=== PATIENT | female | born 1985 | race Two or more races ===

== ENCOUNTER 2018-04-23 05:09 | Emergency (ER) | payer OTHER, SELFPAY ==
[2018-04-23] MEDS ORDERED: NA CHLORIDE 0.9% 1,000 ML ONE (05:50)
--- NOTE | 2018-04-23 06:37 | ER ---
Nurse's Notes [facility] Name: Linh Young Age: 33 yrs Sex: Female : 1985 Arrival Date: 04/23/2018 Time: 05:12 Bed 2 Private MD: Diagnosis: Presentation: 04/23 05:05 Presenting complaint: EMS states: EMS called to by PD, Hotel staff reported and friends ea pt having seizure like activity. Pt friends reported they had been drinking denied drug use. Pt Ox2 per EMS. Transition of care: patient was not received from another setting of care. Transition of care: patient was not received from another setting of care. Onset of symptoms was April 23, 2018. Risk Assessment: Do you want to hurt yourself or someone else? Patient reports no desire to harm self or others. Initial Sepsis Screen: Does the patient meet any 2 criteria? HR > 90 bpm. Does the patient have a suspected source of infection? No. Patient's initial sepsis screen is negative. Care prior to arrival: None. 05:05 Method Of Arrival: EMS: [facility] ea 05:05 Acuity: MAIA 3 ea Triage Assessment: 05:05 General: Appears uncomfortable, Behavior is anxious, crying. General: Smells of ea alcohol. Pain: Denies pain. Neuro: Level of Consciousness is obeys commands, Oriented to person, place, situation. Neuro: Speech is slurred. Cardiovascular: Patient's skin is warm and dry. Respiratory: Airway is patent Respiratory effort is even, unlabored, Respiratory pattern is regular, symmetrical. Derm: Skin is normal, Skin temperature is cool warm blanket applied. 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 - Social history:: Patient/guardian denies using street drugs, Smoking status: Patient/guardian denies using tobacco. - Ebola Screening: : Unable to complete screening because. - Family history:: not pertinent. - Hospitalizations: : No recent hospitalization is reported. Screenin:20 Abuse screen: Denies threats or abuse. Nutritional screening: No deficits noted. ea Tuberculosis screening: No symptoms or risk factors identified. Fall Risk None identified. Assessment: 06:32 General: pt constantly yelling and wanting to go home. pt had a friend at bedside to ak1 take her home. pt signed out AMA. form was signed and pt friend too her home. pt left ambulatory with her friend to "take her daughter to day care". Vital Signs: 05:18 BP 144 / 86; Pulse 144; Resp 19; Temp 98.3(O); Pulse Ox 100% on R/A; ea 06:34 BP 135 / 88; Pulse 118; Resp 18; Temp 98.3; Pulse Ox 100% on R/A; ak1 ED Course: 05:05 Arm band placed on right wrist. Patient placed in an exam room, on a stretcher, on ea copyright expert, on pulse oximetry. 05:05 Placed in gown. Bed in low position. Call light in reach. Side rails up X2. ea 05:12 Patient arrived in ED. rn 05:12 Edis Bautista MD is Attending Physician. rn 05:15 Christelle Barton RN is Primary Nurse. ea 05:18 Triage completed. ea 05:39 Inserted saline lock: 20 gauge in left antecubital area, using aseptic technique. Blood ea collected. 06:35 No provider procedures requiring assistance completed. IV discontinued, intact, ak1 bleeding controlled, No redness/swelling at site. Pressure dressing applied. Administered Medications: 05:43 Drug: NS 0.9% 1000 ml Route: IV; Rate: 1000 ml; Site: right antecubital; ea Outcome: 06:35 AMA AMA form signed ak1 06:35 Condition: unchanged 06:36 Patient left the ED. ak1 Signatures: Edis Bautista MD MD rn Krenek, Amber, RN RN ak1 Antunez, Elena, RN RN ea
--- NOTE | 2018-04-23 06:38 | EDPHYS ---
Physician Documentation [facility] Name: Linh Young Age: 33 yrs Sex: Female : 1985 Arrival Date: 04/23/2018 Time: 05:12 Bed 2 Private MD: ED Physician Edis Bautista HPI: 04/23 05:26 This 33 yrs old Other Female presents to ER via EMS with complaints of AMS. rn 05:26 Hotel staff called 911 because patient was acting strange and shaking while walking and rn talking, when EMS arrived was upstairs in her room and in bed sleeping, other people with her all intoxicated, patient reports was at bar last night drinking a lot, denies drug use. . Onset: The symptoms/episode began/occurred today. Severity of symptoms: At their worst the symptoms were moderate in the emergency department the symptoms are unchanged. It is unknown whether or not the patient has had similar symptoms in the past. MBA INTERN: 05:18 Unable to obtain pt states "I am not sure" ea Historical: - Allergies: 05:21 No Known Allergies; ea - Home Meds: 05:21 None [Active]; ea - PMHx: 05:21 None; ea - PSHx: 05:21 None; ea - Immunization history:: unable to obtain states " I don't know". - Social history:: Patient/guardian denies using street drugs, Smoking status: Patient/guardian denies using tobacco. - Ebola Screening: : Unable to complete screening because. - Family history:: not pertinent. - Hospitalizations: : No recent hospitalization is reported. ROS: 05:26 Constitutional: Negative for fever, chills, and weight loss, Eyes: Negative for injury, rn pain, redness, and discharge, Neck: Negative for injury, pain, and swelling, Cardiovascular: Negative for chest pain, palpitations, and edema, Respiratory: Negative for shortness of breath, cough, wheezing, and pleuritic chest pain, Abdomen/GI: Negative for abdominal pain, nausea, vomiting, diarrhea, and constipation, MS/Extremity: Negative for injury and deformity, Skin: Negative for injury, rash, and discoloration, Neuro: Negative for headache, weakness, numbness, tingling, and seizure. Exam: 05:26 Constitutional: This is a well developed, well nourished patient who is awake, alert, rn tremulous Head/Face: Normocephalic, atraumatic. Eyes: Pupils equal round and reactive to light, extra-ocular motions intact. Lids and lashes normal. Conjunctiva and sclera are non-icteric and not injected. Cornea within normal limits. Periorbital areas with no swelling, redness, or edema. ENT: dry MM Neck: Trachea midline, no thyromegaly or masses palpated, and no cervical lymphadenopathy. Supple, full range of motion without nuchal rigidity, or vertebral point tenderness. No Meningismus. Cardiovascular: tachycardic, regular, no murmur Respiratory: Lungs have equal breath sounds bilaterally, clear to auscultation. No increased work of breathing, no retractions or nasal flaring. Abdomen/GI: soft, non-tender Skin: Warm, dry MS/ Extremity: Pulses equal, no cyanosis. Neurovascular intact. Full, normal range of motion. Equal circumference. Neuro: Awake and alert, GCS 15, oriented to person, place, time, and situation. Cranial nerves II-XII grossly intact. Motor strength 5/5 in all extremities. Sensory grossly intact. Cerebellar exam normal. Normal gait. Slurred speech. Vital Signs: 05:18 BP 144 / 86; Pulse 144; Resp 19; Temp 98.3(O); Pulse Ox 100% on R/A; ea 06:34 BP 135 / 88; Pulse 118; Resp 18; Temp 98.3; Pulse Ox 100% on R/A; ak1 MDM: 05:12 Patient medically screened. rn 06:32 Differential Diagnosis drug or alcohol intoxication, dehydration. Data reviewed: vital rn signs, nurses notes, lab test result(s). Refusal of service: The patient/guardian displays adequate decision making capability and despite a detailed discussion of alternatives, benefits, risks, and consequences refuses: all lab tests, Medications. ED course: Pt refuses further care, called her friend to pick her up, signs out against advice, there was no reasoning with her, friend who picked her up is sober and is driving her home. Risks of leaving explained, patient left in care of friend.. 04/23 05:13 Order name: Basic Metabolic Panel rn 04/23 05:13 Order name: ETOH Level rn 04/23 05:13 Order name: Acetaminophen rn 04/23 05:13 Order name: Hepatic Function rn 04/23 05:13 Order name: IV Start; Complete Time: 05:39 rn 04/23 05:13 Order name: Urine Test (obtain specimen) rn 04/23 05:13 Order name: Urine Dipstick-Ancillary (obtain specimen) rn 04/23 05:13 Order name: Salicylate rn 04/23 05:13 Order name: EKG - Nurse/Tech rn 04/23 05:13 Order name: Labs collected and sent rn Administered Medications: 05:43 Drug: NS 0.9% 1000 ml Route: IV; Rate: 1000 ml; Site: right antecubital; ea Disposition: 04/23/18 06:36 Patient has left against medical advice. - Patients states they are going to Home. - Condition is Undetermined. Signatures: Dispatcher [employer] Edis Baker MD MD rn Krenek, Amber RN RN ak1 Christelle Barton RN RN ea
[2018-04-23 12:21] LABS: ALT/SGPT 25 U/L (12-78); AST/SGOT 26 U/L (15-37); Albumin 4.1 g/dL (3.4-5.0); Alkaline Phosphatase 44 U/L (45-117); BUN Blood Urea Nitrogen 14 mg/dL (7-18); Bicarbonate 24 mmol/L (21-32); Bilirubin Direct < 0.1 mg/dL (0-0.2); Bilirubin Total 0.2 mg/dL (0.2-1.0); Glucose Level 96 mg/dL (74-106); Potassium 3.9 mmol/L (3.5-5.1); Protein, Total 7.6 g/dL (6.4-8.2); Sodium Level 139 mmol/L (136-145)
== END 2018-04-23 06:36 | disposition left against medical advice (07) ==
LOC: ER 05:09
DX: R41.82 Altered mental status, unspecified (principal)
CPT/HCPCS: 36415; 80048; 80076; 80320; 80329; 99284; J7030

== ENCOUNTER 2019-04-19 21:38 | Emergency (ER) | payer SELFPAY ==
--- OUTSIDE RECORDS SUMMARY | 2019-04-19 21:40 | XMS REPORT ---
:1985 [facility] Address [address] [place] [address] [address] [place] [address] Care Team Providers Name Role Phone Unavailable Unavailable Unavailable Problems This patient has no known problems. Allergies, Adverse Reactions, Alerts This patient has no known allergies or adverse reactions. Medications This patient has no known medications.
--- NOTE | 2019-04-19 23:54 | ER ---
Nurse's Notes [facility] Name: Linh Young Age: 34 yrs Sex: Female : 1985 Arrival Date: 04/19/2019 Time: 21:40 Bed 25 Private MD: Diagnosis: Bronchitis, not specified as acute or chronic;Fever, unspecified;Tobacco abuse counseling;Tobacco use;Streptococcal pharyngitis Presentation: 04/19 21:42 Presenting complaint: Patient states: "3 days ago I started having pain in my throat, aj1 coughing, and now its getting hard to breathe" Patient reports fever at home this morning of 101.2. Reports cough, congestion. Transition of care: patient was not received from another setting of care. Onset of symptoms was March 2019. Risk Assessment: Do you want to hurt yourself or someone else? Patient reports no desire to harm self or others. Initial Sepsis Screen: Does the patient meet any 2 criteria? No. Patient's initial sepsis screen is negative. Does the patient have a suspected source of infection? Yes: Productive cough/pneumonia. Care prior to arrival: None. 21:42 Method Of Arrival: Ambulatory aj1 21:42 Acuity: MAIA 3 aj1 Triage Assessment: 21:43 General: Appears in no apparent distress. comfortable, Behavior is calm, cooperative, aj1 appropriate for age. Pain: Complains of pain in generalized body aches Pain currently is 7 out of 10 on a pain scale. Neuro: Level of Consciousness is awake, alert, obeys commands, Oriented to person, place, time, situation. Cardiovascular: Patient's skin is warm and dry. Respiratory: Reports shortness of breath on exertion cough that is hacking, persistent Airway is patent Respiratory effort is even, unlabored, Respiratory pattern is regular, symmetrical, Onset: The symptoms/episode began/occurred 3 days ago, the patient has mild shortness of breath. 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 - Coronavirus screen:: The patient has NOT traveled to [place] in the past 14 days. - Social history:: Smoking status: Patient reports the use of cigarette tobacco products, smokes one-half pack cigarettes per day. - Ebola Screening: : Patient denies travel to an Ebola-affected area in the 21 days before illness onset. Screenin:20 Abuse screen: Denies threats or abuse. Denies injuries from another. Nutritional ls4 screening: No deficits noted. Tuberculosis screening: No symptoms or risk factors identified. Fall Risk None identified. Assessment: 22:20 Cardiovascular: Denies chest pain, Rhythm is regular. ls4 22:20 General: Appears in no apparent distress. uncomfortable, Behavior is calm, cooperative. ls4 Neuro: No deficits noted. Respiratory: Reports cough that is non-productive, dry, hacking, persistent Respiratory effort is even, unlabored, Respiratory pattern is regular, Breath sounds with wheezes bilaterally. the patient has mild shortness of breath. 04/20 00:00 Reassessment: No changes from previously documented assessment. Patient and/or family ls4 updated on plan of care and expected duration. Pain level reassessed. Patient is alert, oriented x 3, equal unlabored respirations, skin warm/dry/pink. 01:29 Reassessment: No changes from previously documented assessment. Patient and/or family ls4 updated on plan of care and expected duration. Pain level reassessed. Patient is alert, oriented x 3, equal unlabored respirations, skin warm/dry/pink. PT BREATHING TREATMENT IN PROGRESS. Vital Signs: 04/19 21:43 BP 142 / 79; Pulse 85; Resp 18; Temp 97.1; Pulse Ox 100% on R/A; Weight 72.57 kg (R); aj1 Height 5 ft. 5 in. (165.10 cm) (R); Pain 7/10; 22:45 BP 121 / 73; Pulse 76; Resp 16; Temp 98.9(O); Pulse Ox 100% ; lt1 04/20 01:15 BP 138 / 84; Pulse 78; Resp 16; Temp 97.4; Pulse Ox 99% on R/A; Pain 3/10; ls4 04/19 21:43 Body Mass Index 26.63 (72.57 kg, 165.10 cm) aj1 ED Course: 04/19 21:40 Patient arrived in ED. jg7 21:43 Triage completed. aj1 21:43 Arm band placed on Patient placed in waiting room, Patient notified of wait time. aj1 22:04 Strep Sent. aj1 22:04 Flu Sent. aj1 22:20 Bed in low position. Call light in reach. Side rails up X 1. ls4 22:20 No provider procedures requiring assistance completed. Patient did not have IV access ls4 during this emergency room visit. 22:25 Ray Miller MD is Attending Physician. humza 22:44 Margie Terry, RN is Primary Nurse. ls4 04/20 00:49 Chest Pa And Lat (2 Views) XRAY Sent. ls4 Administered Medications: 00:34 Drug: predniSONE 40 mg Route: PO; ls4 01:00 Follow up: Response: No adverse reaction ls4 00:35 Drug: Rocephin (cefTRIAXone) 1 grams Route: IM; Site: right deltoid; ls4 01:00 Follow up: Response: No adverse reaction ls4 00:35 Drug: Zithromax 500 mg Route: PO; ls4 01:00 Follow up: Response: No adverse reaction ls4 00:36 Drug: Xopenex 2.5 mg Route: Inhalation; ls4 00:36 Drug: AtroVENT Aerosol 0.5 mg Route: Inhalation; ls4 01:00 Follow up: Response: No adverse reaction ls4 Outcome: 04/19 23:54 [facility] 04/20 01:15 Discharged to home ambulatory, with family. ls4 01:15 Condition: good ls4 01:15 Discharge instructions given to patient, family, Instructed on discharge instructions, follow up and referral plans. safety practices, Demonstrated understanding of instructions, follow-up care, medications, Prescriptions given X 4. 01:32 Patient left the ED. ls4 Signatures: Zehra Vasques, RN RN Ray Barillas MD MD cha Stewart, Lisa, LAVON RN ls4 [place] 1 Jamia Payne jg7
--- NOTE | 2019-04-19 23:55 | EDPHYS ---
Physician Documentation [facility] Name: Linh Young Age: 34 yrs Sex: Female : 1985 Arrival Date: 04/19/2019 Time: 21:40 Bed 25 Private MD: ED Physician Ray Miller HPI: 04/19 23:50 This 34 yrs old Black Female presents to ER via Ambulatory with complaints of Breathing humza Difficulty, Cold Symptoms. 23:50 The patient has shortness of breath with light activity. Onset: The symptoms/episode humza began/occurred 3 day(s) ago. Duration: The symptoms are continuous, and are steadily getting worse. The patient's shortness of breath is aggravated by coughing, supine position, is alleviated by rest, sitting up, application of supplemental oxygen. Associated signs and symptoms: Pertinent positives: non-productive cough, fever. Severity of symptoms: At their worst the symptoms were mild moderate in the emergency department the symptoms are unchanged. The patient has experienced similar episodes in the past, a few times. 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 - Coronavirus screen:: The patient has NOT traveled to [place] in the past 14 days. - Social history:: Smoking status: Patient reports the use of cigarette tobacco products, smokes one-half pack cigarettes per day. - Ebola Screening: : Patient denies travel to an Ebola-affected area in the 21 days before illness onset. ROS: 23:51 Constitutional: Negative for fever, chills, and weight loss, Eyes: Negative for injury, humza pain, redness, and discharge, Neck: Negative for injury, pain, and swelling, Cardiovascular: Negative for chest pain, palpitations, and edema, Abdomen/GI: Negative for abdominal pain, nausea, vomiting, diarrhea, and constipation, Back: Negative for injury and pain, : Negative for injury, bleeding, discharge, and swelling, MS/Extremity: Negative for injury and deformity, Skin: Negative for injury, rash, and discoloration, Neuro: Negative for headache, weakness, numbness, tingling, and seizure, Psych: Negative for depression, anxiety, suicide ideation, homicidal ideation, and hallucinations, Allergy/Immunology: Negative for hives, rash, and allergies, Endocrine: Negative for neck swelling, polydipsia, polyuria, polyphagia, and marked weight changes, Hematologic/Lymphatic: Negative for swollen nodes, abnormal bleeding, and unusual bruising. 23:51 ENT: Positive for sore throat. Exam: 23:51 Constitutional: This is a well developed, well nourished patient who is awake, alert, humza and in no acute distress. Head/Face: Normocephalic, atraumatic. Eyes: Pupils equal round and reactive to light, extra-ocular motions intact. Lids and lashes normal. Conjunctiva and sclera are non-icteric and not injected. Cornea within normal limits. Periorbital areas with no swelling, redness, or edema. Neck: Trachea midline, no thyromegaly or masses palpated, and no cervical lymphadenopathy. Supple, full range of motion without nuchal rigidity, or vertebral point tenderness. No Meningismus. Chest/axilla: Normal chest wall appearance and motion. Nontender with no deformity. No lesions are appreciated. Cardiovascular: Regular rate and rhythm with a normal S1 and S2. No gallops, murmurs, or rubs. Normal PMI, no JVD. No pulse deficits. Abdomen/GI: Soft, non-tender, with normal bowel sounds. No distension or tympany. No guarding or rebound. No evidence of tenderness throughout. Back: No spinal tenderness. No costovertebral tenderness. Full range of motion. Skin: Warm, dry with normal turgor. Normal color with no rashes, no lesions, and no evidence of cellulitis. MS/ Extremity: Pulses equal, no cyanosis. Neurovascular intact. Full, normal range of motion. Neuro: Awake and alert, GCS 15, oriented to person, place, time, and situation. Cranial nerves II-XII grossly intact. Motor strength 5/5 in all extremities. Sensory grossly intact. Cerebellar exam normal. Normal gait. 23:51 ENT: 23:51 ENT: Posterior pharynx: Tonsils: with erythema, Uvula: normal, midline, swelling, that is mild, erythema, that is mild, exudate, is not appreciated, peritonsillar mass, is not appreciated. Vital Signs: 21:43 BP 142 / 79; Pulse 85; Resp 18; Temp 97.1; Pulse Ox 100% on R/A; Weight 72.57 kg (R); aj1 Height 5 ft. 5 in. (165.10 cm) (R); Pain 7/10; 22:45 BP 121 / 73; Pulse 76; Resp 16; Temp 98.9(O); Pulse Ox 100% ; lt1 04/20 01:15 BP 138 / 84; Pulse 78; Resp 16; Temp 97.4; Pulse Ox 99% on R/A; Pain 3/10; ls4 04/19 21:43 Body Mass Index 26.63 (72.57 kg, 165.10 cm) aj1 MDM: 04/19 22:25 Patient medically screened. [place] 23:53 Data reviewed: vital signs, nurses notes, lab test result(s), radiologic studies, plain humza films. 04/19 21:45 Order name: Flu [facility] 04/19 21:45 Order name: Strep [facility] 04/19 21:45 Order name: Chest Pa And Lat (2 Views) XRAY 04/19 22:41 Order name: Influenza Screen (A ; Complete Time: 23:47 EDMS 04/19 22:41 Order name: Group A Streptococcus Rapid Sc; Complete Time: 23:47 EDMS Administered Medications: 04/20 00:34 Drug: predniSONE 40 mg Route: PO; ls4 01:00 Follow up: Response: No adverse reaction ls4 00:35 Drug: Rocephin (cefTRIAXone) 1 grams Route: IM; Site: right deltoid; ls4 01:00 Follow up: Response: No adverse reaction ls4 00:35 Drug: Zithromax 500 mg Route: PO; ls4 01:00 Follow up: Response: No adverse reaction ls4 00:36 Drug: Xopenex 2.5 mg Route: Inhalation; ls4 00:36 Drug: AtroVENT Aerosol 0.5 mg Route: Inhalation; ls4 01:00 Follow up: Response: No adverse reaction 4 Disposition: 04/19/19 23:54 Discharged to Home. Impression: Bronchitis, not specified as acute or chronic, Fever, unspecified, Tobacco abuse counseling, Tobacco use, Streptococcal pharyngitis. - Condition is Stable. - Discharge Instructions: Acute Bronchitis, Adult, Fever, Adult, How to Use an Inhaler, Steps to Quit Smoking, Smoking Hazards, Upper Respiratory Infection, Adult, Upper Respiratory Infection, Adult, [id number], Steps to Quit Smoking, [id number]. - Prescriptions for Medrol (Espinoza) 4 mg Oral Tablets, Dose Pack - take 1 tablet by ORAL route as directed - follow package instructions; 1 packet. Albuterol Sulfate 90 mcg/actuation - inhale 1-2 puff by INHALATION route every 4-6 hours; 1 Inhaler. Zithromax 500 mg Oral Tablet - take 1 tablet by ORAL route once daily for 4 days; 4 tablet. Bromfed DM 2- 30-10 mg/5 mL Oral syrup - take 10 milliliter by ORAL route every 4 hours; 150 milliliter. - Medication Reconciliation Form, Thank You Letter, Antibiotic Education, Prescription Opioid Use form. - Follow up: Private Physician; When: 2 - 3 days; Reason: Recheck today's complaints, Continuance of care, Re-evaluation by your physician. - Problem is new. - Symptoms have improved. Signatures: Dispatcher [employer] EDZehra Dubois, LAVON RN aj1 Ray Miller MD MD cha Stewart, Lisa, RN RN ls4 Corrections: (The following items were deleted from the chart) 00:33 04/19 23:54 04/19/2019 23:54 Discharged to Home. Impression: Bronchitis, not specified humza as acute or chronic; Fever, unspecified; Tobacco abuse counseling; Tobacco use. Condition is Stable. Forms are Medication Reconciliation Form, Thank You Letter, Antibiotic Education, Prescription Opioid Use. Follow up: Private Physician; When: 2 - 3 days; Reason: Recheck today's complaints, Continuance of care, Re-evaluation by your physician. Problem is new. Symptoms have improved. [place] 04/20 01:32 00:33 04/19/2019 23:54 Discharged to Home. Impression: Bronchitis, not specified as ls4 acute or chronic; Fever, unspecified; Tobacco abuse counseling; Tobacco use; Streptococcal pharyngitis. Condition is Stable. Discharge Instructions: Acute Bronchitis, Adult, Fever, Adult, How to Use an Inhaler, Steps to Quit Smoking, Smoking Hazards, Upper Respiratory Infection, Adult, Upper Respiratory Infection, Adult, [id number], Steps to Quit Smoking, [id number]. Prescriptions for Medrol (Espinoza) 4 mg Oral Tablets, Dose Pack - take 1 tablet by ORAL route as directed - follow package instructions; 1 packet, Albuterol Sulfate 90 mcg/actuation - inhale 1-2 puff by INHALATION route every 4-6 hours; 1 Inhaler, Zithromax 500 mg Oral Tablet - take 1 tablet by ORAL route once daily for 4 days; 4 tablet, Bromfed DM 2-30-10 mg/5 mL Oral syrup - take 10 milliliter by ORAL route every 4 hours; 150 milliliter. and Forms are Medication Reconciliation Form, Thank You Letter, Antibiotic Education, Prescription Opioid Use. Follow up: Private Physician; When: 2 - 3 days; Reason: Recheck today's complaints, Continuance of care, Re-evaluation by your physician. Problem is new. Symptoms have improved. humza
[2019-04-20] MEDS ORDERED: IPRATROPIUM BROM 0.5MG/2.5ML ONE (00:34)
[2019-04-20] MEDS ORDERED: AZITHROMYCIN 250 MG TAB ONE (00:34)
[2019-04-20] MEDS ORDERED: LEVALBUTEROL 1.25 MG/3 ML NEB ONE (00:34)
[2019-04-20] MEDS ORDERED: CEFTRIAXONE 1000 MG/VIAL ONE (00:35)
[2019-04-20] MEDS ORDERED: LIDOCAINE 1% MPF 2 ML AMPULE ONE (00:35)
[2019-04-20] MEDS ORDERED: predniSONE 20 MG TAB ONE (00:35)
[2019-04-20 03:59] VITALS: BP 138/84; TEMP 97.4; O2SAT 99
--- NOTE | 2019-04-20 08:35 | RAD REPORT ---
EXAM DESCRIPTION: RAD - Chest Single View - 04/19/2019 10:38 pm CLINICAL HISTORY: SOB COMPARISON: CHEST PA AND LAT 2 VIEW dated 10/26/2012 TECHNIQUE: AP portable chest image was obtained 04/19/2019 10:38 pm . FINDINGS: Lungs are clear. Heart and vasculature are normal. No measurable pleural effusion and no p neumothorax. No acute bony abnormality seen. No acute aortic findings suspected. No significant wise e from comparison. IMPRESSION: No acute cardiopulmonary process.
== END 2019-04-20 01:32 | disposition home or self-care (01) ==
LOC: ER 21:38
DX: J40 Bronchitis, not specified as acute or chronic (principal); J02.0 Streptococcal pharyngitis; Z72.0 Tobacco use; Z71.6 Tobacco abuse counseling
CPT/HCPCS: 71045; 87081; 87804; 96372; 99284; J2001; J7512

== ENCOUNTER 2022-03-24 13:12 | Emergency (ER) | payer SELFPAY ==
--- OUTSIDE RECORDS SUMMARY | 2022-03-24 13:14 | XMS REPORT | Continuity of Care Document ---
:1985 Author Organization [facility] t Address [facility] [place] [address] Care Team Providers Name Role Phone Misti Haji Primary Care Physician [phone] MISTI OSEGUERA Attending Clinician Unavailable Misti Haji Attending Clinician [phone] Doctor Unassigned, [place] Attending Clinician Unavailable Diane Coburn MD Attending Clinician [phone] SHIVA POLLACK Attending Clinician Unavailable BUBBA RODRIGUEZ Attending Clinician Unavailable Bubba Smith Attending Clinician Aj [facility] Attending Clinician Unavailable [facility] Attending Clinician Unavailable Lauryn Hinojosa Attending Clinician LAURYN AREVALO Attending Clinician Unavailable Jennifer Arias RN Attending Clinician Unavailable Payers Payer Name Policy Type Policy Number Effective Date Expiration Date Natalia luke [id number]-[id number] 2020 00:00:00 Problems Condition Condition Condition Status Onset Resolution Last Treating Co mments Source Name Details Category Date Date Treatment Clinician Date Other Other Disease Active Univers general general 8-23 [place] counseling [place] advice 00 Fl dical for for Branch contracept contracept mari mari management management Breakthrou Breakthrou Disease Active U nivers gh gh 8-23 ity of bleeding bleeding 00:00: [place] on on 00 Medical Nexplanon Nexplanon Bran ch Elevated Elevated Disease Active Unive rs blood blood 4-12 ity of pressure pressure 00:00: [place] reading reading 00 Medical without without Branch diagnosis diagnosis of of hypertensi hypertensi on on Tobacco Tobacco Disease Active Univers use use 9-23 ity of disorder disorder 00:00: [place] 00 Medical Branch Nexplanon Nexplanon Disease Active Uni vers removal removal 7 ity of 00:00: [place] 00 Medical Branch Screening Screening Disease Active Uni vers examinatio examinatio 7 it y of n for STD n for STD 00:00: [place] s (sexually (sexually 00 [facility] kai transmitte transmitte Br anch d disease) d disease) Need for Need for Disease Active Unive rs Tdap Tdap 08-29 [place]y of vaccinatio vaccin[place] Medical [place] BMI BMI Disease Active Univers 27.0-27.9, 27.0-27.9, 7-03 it y of adult adult 00:00: [place] 00 Medical Branch ASCUS with ASCUS with Disease Active U nivers positive positive 8-10 ity of high risk high risk 00:00: [place] s HPV HPV 00 Medical cervical cervical Branch Dysmenorrh Dysmenorrh Disease Active U nivers ea ea 6-30 ity of 00:00: [place] 00 Medical Branch Chronic Chronic Disease Active Univers hypertensi hypertensi 6-23 it y of on on 00:00: [place] 00 Medical Branch Depression Depression Disease Active U nivers 6-23 ity of 00:00: [place] 00 Medical Branch Allergies, Adverse Reactions, Alerts This patient has no known allergies or adverse reactions. Social History Social Habit Start Date Stop Date Quantity Comments Source History of tobacco 2003-11-20 Cigarette Smoker University of use 00:00:00 [place] [facility] History SDOH University o f Alcohol Std Drinks [place] [facility] History SDOH University o f Alcohol Binge [place] Medic al Branch History SDOH University o f Alcohol Frequency [facility] edical Branch Exposure to 2021-07-30 2021-08-09 Not sure [facility] SARS-CoV-2 (event) 00:00:00 15:19:00 [facility] Alcohol intake 2021-08-09 2021-08-09 Current drinker Unive rsity of 00:00:00 00:00:00 of alcohol [facility] (finding) [place] Alcohol Comment 2020-06-08 2020-06-08 on occassion Univers ity of 00:00:00 00:00:00 [facility] Tobacco Comment 2016-08-29 2016-08-29 5 cigarettes per Uni versity of 00:00:00 00:00:00 day. [facility] Cigarettes smoked 2016-08-29 2016-08-29 Univers ity of current (pack per 00:00:00 00:00:00 [facility] ) - Reported [place] Cigarette 2016-08-29 2016-08-29 University of pack-years 00:00:00 00:00:00 [facility] Tobacco use and 2016-08-29 2016-08-29 Never used Universit y of exposure 00:00:00 00:00:00 [facility] Sex Ass[birth year] Universit y of 00:00:00 00:00:00 [facility] Smoking Status Start Date Stop Date Source Current every day smoker 2016-08-29 00:00:00 Uni versity of [facility] Medications Ordered Filled Start Stop Current Ordering Indication Dosage Frequency Signature Comments Components Source Medication Medication Date Date Medication? Clinician (SIG) Name Name etonogestre 2021- No [id number] 68mg Univers L 08-09 ity of (NEXPLANON) 22:30: 21:26 [place] implant 68 00 :00 Medical mg [place] etonogestre 2021- No [id number] 68mg 68 mg, Univers L 08-09 Subdermal, ity of (NEXPLANON) 22:30: 21:26 ONCE NOW, [place] implant 68 00 :00 1 dose, On Med ical mg Mon [place] 08/09/21 at 1730, Routine
Use approved by: [employer] ARCHITECT etonogestre 2021- No [id number] 68mg Univers L 08-09- ity of (NEXPLANON) 21:45: 21:26 [place] implant 68 00 :06 Medical mg Branch acyclovir Yes [id number] 400mg Take 1 Univers 400 mg 4-28 tablet by ity of tablet 00:00: mouth 2 (two) Medical times Branch daily. lidocaine 2 Yes [id number] 30mL Apply 15 Univers % mucosal 4-28 Inches to ity o f jelly 00:00: area(s) as 00 needed for Medical Pain Branch (scale 4-6). Apply small amount to area as needed for discomfort Immunizations Ordered Filled Immunization Date Status Comments Sourc e Immunization Name Name Influenza Virus 2018-01-12 Completed Universit y of Vaccine Quad IM 3+ 00:00:00 [facility] YRS Branch TDAP 2016-08-29 Completed [facility] 00:00:00 [facility] Vital Signs Vital Name Observation Time Observation Value Comments Source Systolic blood 2021-08-09 20:20:00 121 mm[Hg] [facility] pressure [facility] Diastolic blood 2021-08-09 20:20:00 81 mm[Hg] [facility] Heart rate 2021-08-09 20:20:00 92 /min [facility] Body temperature 2021-08-09 20:19:00 35.94 Crys [facility] Respiratory rate 2021-08-09 20:19:00 18 /min [facility] Body height 2021-08-09 20:19:[address] [facility] Body weight 2021-08-09 20:19:[address] [facility] BMI 2021-08-09 20:19:00 29.45 kg/m2 [facility] Procedures Procedure Date / Time Performed Performing Clinician Kimo e POCT TEST 2021-08-09 20:21:00 [facility] Start End Encounter Admission Attending Care Care Encounter Source Date/Time Date/Time Type Type Clinicians Facility Department ID 2021-08-09 2021-08-09 Outpatient R ANA ROSA [facility] [id number] Univers 15:15:00 16:01:23 MISTI maldonado o f [facility] 2021-08-09 2021-08-[address] [facility] [id number] Univers 15:15:00 16:01:23 Visit Misti Shepherd [employer] ARCHITECT [id number] ity of REGIONAL [id number] [place] as MATERNAL [phone] [facility] & CHILD [address] [place] [address] 2021-08-09 2021-08-09 Outpatient R ANA ROSA [facility] [id number] Univers 15:15:00 15:15:00 MISTI hammondy o f [facility] 2021-08-09 2021-08-09 Orders Doctor DONNA [id number] Univers 00:00:00 00:00:00 Only Unassigned, TANISHA [id number] ity of [place] [facility] 4.2.7.2.686 [place] as [phone] [place] [address] Branch 2021-08-02 2021-08-02 Patient Irish ELLSWORTH [id number] Univers 00:00:00 00:00:00 Secure Msg , Diane PEDIATRIC [id number] ity of [place]7.2.686 [place] [phone] [facility] PRIMARY [address] [place] [address] 2021-06-22 2021-06-22 [facility] [id number] Univers 00:00:00 00:00:00 Misti Shepherd [employer] ARCHITECT [id number] ity of REGIONAL [id number] [place] as MATERNAL [phone] [facility] [address] [place] [address] 2021-06-21 2021-06-21 [facility]phone [facility] 1.2.840.114 [id number] Univers 00:00:00 00:00:00 Misti Shepherd [employer]TALK ARCHITECT 350.1.13.10 ity of REGIONAL [id number] [place] as MATERNAL [phone] [facility] & CHILD [address] [place] [address] 2021-06-21 2021-06-21 [facility]phone [facility] [id number] Univers 00:00:00 00:00:00 Misti C [employer]IZTALK ARCHITECT 350.1.13.10 ity of [facility] 42.7.2.686 [place] as MATERNAL [id number] [facility] & [address] 2021-06-17 2021-06-[address] [facility] [id number] Univers 15:15:00 16:39:53 Visit Misti Shepherd [employer] ARCHITECT 350.1.13.10 ity of [facility] 4.2.7.2.686 [place] as MATERNAL [phone] [facility] & [address] 2021-06-17 2021-06-17 Outpatient R ANA ROSA [facility] [id number] Univers 15:15:00 16:39:53 MISTITASHA maldonado [facility] 2021-06-17 2021-06-17 Outpatient R ANA ROSA [facility] [id number] Univers 15:15:00 16:39:53 MISTITASHA maldonado o [facility] [place] 2021-06-17 2021-06-17 Outpatient R ANA ROSA [facility] [id number] Univers 15:15:00 15:15:00 [facility] 2021-06-17 2021-06-17 Orders Doctor THOMPSON 1.2.840.114 [id number] Univers 00:00:00 00:00:00 Only Unassigned, TANISHA 350.1.13.10 ity of [place] [address]686 [place] as [phone] [address] 2021-06-10 2021-06-10 Outpatient R RANJEET [facility] [id number] Univers 13:00:00 13:00:00 SHIVA maldonado [facility] 2021-05-27 2021-05-27 Outpatient R MICHAEL [facility] [id number] Univers 14:30:00 15:08:09 BUBBA alen [facility] 2021-05-27 2021-05-[address] [facility] [id number] Univers 14:30:00 15:08:09 Visit Bubba R [employer] ARCHITECT 350.1.13.10 ity of REGIONAL 4.2.7.2.686 [place] as MATERNAL [id number] [facility] & [address] 2020-12-08 2020-12-[address] [facility] [id number] Univers 00:00:00 00:00:00 Misti C BIZTALK ARCHITECT 350.1.13.10 ity of REGIONAL 4.2.7.2.686 [place] MATERNAL [phone] [facility] [address] [place] [address] 2020-11-30 2020-11-30 Outpatient R ANA ROSA, [facility] [id number] Univers 14:15:00 14:15:00 MISTI maldonado o [facility] [place] 2020-11-30 2020-11-[address] [facility] [id number] Univers 00:00:00 00:00:00 Misti C [employer]IZTALK ARCHITECT 350.1.13.10 ity of REGIONAL 4.2.7.2.686 [place] MATERNAL [id number] [facility] & [address] 2020-10-19 2020-10-[address] [facility] [id number] Univers 14:14:48 15:30:25 Visit Misti C [employer]IZTALK ARCHITECT 350.1.13.10 ity of REGIONAL 4.2.7.2.686 [place] MATERNAL [id number] [facility] & CHILD [address] [place] [address] 2020-10-19 2020-10-19 Outpatient R ANA ROSA, [facility] [id number] Univers 14:15:00 14:15:00 MISTI maldonado o [facility] [place] 2020-07-20 2020-07-20 Outpatient R ANA ROSA, [facility] [id number] Univers 09:15:00 09:15:00 MISTI hammondy o f [facility] 2020-07-16 2020-07-16 Telephone Tosin Rocha [id number] Univers 00:00:00 00:00:00 Sera R Santos 350.1.13.10 ity of [place].2.[place] [id number] [facility] 086 [place] 2020-06-08 2020-06-08 Office Michael [facility] 1.2.840.114 [id number] Univers 10:52:52 11:51:26 Visit Bubba R [employer]TALK ARCHITECT 350.1.13.10 ity of REGIONAL 4.2.7.2.686 [place] as MATERNAL [id number] Med ical & CHILD [address] [place] [address] 2020-06-08 2020-06-08 [facility] [id number] Univers 10:30:00 10:30:00 BUBBA maldonado o f [facility] 2020-06-08 2020-06-08 Orders Doctor DONNA 1.2.840.114 [id number] Univers 00:00:00 00:00:00 Only Unassigned, TANISHA 350.1.13.10 ity of [place] [facility] 4.2.7.2.686 [place] as [phone] [facility] 009 Branch 2020-04-20 2020-04-20 Outpatient R ANA ROSA [facility] [id number] Univers 14:15:00 14:15:00 MISTI maldonado o f [facility] 2019-05-29 2019-05-29 Telephone Irish [facility] 1.2.840.114 [id number] Univers 00:00:00 00:00:00 , Diane [employer] 350.1.13.10 ity of [place] 4.2.7.2.686 [place] as Professio [phone] Fl dical nal [address] [place] [address] 2019-05-28 2019-05-28 Urgent Pob1, Acute Care Clinic [facility] 1. 2.840.114 [id number] Univers 10:25:08 10:45:08 Care Lauryn Arevalo 350.1.13.10 ity of [place] 4.2.7.2.686 [place] as Professio [phone] Fl dicpr nal [address] [place] [address] 2019-05-28 2019-05-28 Outpatient R ALEXANDER [facility] [id number] Univers 10:20:00 10:20:00 LAURYN alen [facility] [place] [facility] 2019-05-28 2019-05-28 Nurse DONNA Arias 1.2.840.114 [id number] Univers 00:00:00 00:00:00 Triage Jennifer GARAY 350.1.13.10 it y [facility] 4.2.7.2.686 [place] [phone] [address] Results Test Description Test Time Test Comments Results Result Comments Source POCT TEST 2021-08-09 20:22:00 Test Item Value Reference Range Interpretation Comme nts POCT PREG (test code = 1605) Negative On board controls acceptable with C Line (test code = 3574) Yes POCT PREG LOT # (test code = 3575) POCT PREG TEST DATE (test code = 3576) [facility]
[2022-03-24] MEDS ORDERED: dexAMETHasone 10 MG/ML VIAL ONE (13:52)
[2022-03-24] MEDS ORDERED: LEVALBUTEROL 1.25 MG/3 ML NEB ONE (13:52)
[2022-03-24 13:55] LABS: Absolute Lymphocytes (CBC) 1.5 K/uL (0.7-4.9); Hematocrit 37.5 % (36.0-45.0); Lymphocytes % 25.8 % (15.3-44.8); MPV 8.4 fL (7.6-11.3); RBC Red Blood Cell Count 3.79 M/uL (3.86-4.86)
[2022-03-24 14:17] LABS: ALT/SGPT 16 U/L (13-56); AST/SGOT 10 U/L (15-37); Albumin 3.2 g/dL (3.4-5.0); Alkaline Phosphatase 39 U/L (45-117); BUN Blood Urea Nitrogen 8 mg/dL (7-18); Bicarbonate 26 mmol/L (21-32); Bilirubin Total 0.2 mg/dL (0.2-1.0); Glomerular Filtration Rate 118 ml/min (=/>90); Glucose Level 90 mg/dL (74-106); Magnesium 1.7 mg/dL (1.6-2.4); NT PRO-BNP 289 pg/mL (<125); Potassium 3.9 mmol/L (3.5-5.1); Protein, Total 6.2 g/dL (6.4-8.2); Sodium Level 139 mmol/L (136-145)
[2022-03-24 14:19] LABS: Bilirubin Direct < 0.1 mg/dL (0-0.2)
[2022-03-24 14:23] LABS: Protime INR 1.03
[2022-03-24 15:18] LABS: Urine Blood Negative (Negative); Urine Glucose Negative (Negative); Urine Protein Negative (Negative)
--- NOTE | 2022-03-24 15:22 | RAD REPORT ---
EXAM DESCRIPTION: Lazaro Single View03/24/2022 2:46 pm CLINICAL HISTORY: Chest pain COMPARISON: 2019 FINDINGS: The lungs appear clear of acute infiltrate. The heart is normal size IMPRESSION: No acute abnormalities displayed
--- NOTE | 2022-03-24 17:05 | EDPHYS ---
Physician Documentation [facility] Name: Linh Young Age: 37 yrs Sex: Female : 1985 Arrival Date: 03/24/2022 Time: 13:14 Bed 12 Private MD: ED Physician Edu Menchaca HPI: 03/24 13:24 This 37 yrs old Female presents to ER via Ambulatory with complaints of Chest Pain, jmm Shortness Of Breath. 13:24 The patient or guardian reports chest pain that is located primarily in the substernal jmm area. The pain does not radiate. Associated signs and symptoms: Pertinent positives: shortness of breath. The chest pain is described as aching. Is a 37-year-old female with no chronic conditions presents emerged part with complaints of chest pain, shortness of breath beginning over the past 2 days. Patient was recently diagnosed with COVID on 06 March. Denies fever. Denies abdominal pain. Denies vomiting. Denies any history of CAD.. [facility]: 13:23 LMP 02/22/2022 iw Historical: - Allergies: 13:24 No Known Allergies; iw - Home Meds: 13:24 gabapentin oral [Active]; iw - PMHx: 13:24 None; iw - PSHx: 13:24 section; iw - Immunization history:: Client reports receiving the 2nd dose of the Covid vaccine. - Social history:: Smoking status: Patient reports the use of cigarette tobacco products. ROS: 13:24 Constitutional: Negative for fever, chills, and weight loss. jmm 13:24 Cardiovascular: Positive for chest pain. 13:24 Respiratory: Positive for shortness of breath. 13:24 All other systems are negative. Exam: 13:24 Constitutional: This is a well developed, well nourished patient who is awake, alert, jmm and in no acute distress. Head/Face: atraumatic. Eyes: EOMI, no conjunctival erythema appreciated ENT: Moist Mucus Membranes Neck: Trachea midline, Supple Chest/axilla: Normal chest wall appearance and motion. Cardiovascular: Regular rate and rhythm. No edema appreciated Respiratory: Normal respirations, no respiratory distress appreciated Abdomen/GI: Non distended Back: Normal ROM Skin: General appearance color normal MS/ Extremity: Moves all extremities, no obvious deformities appreciated, no edema noted to the lower extremities Neuro: Awake and alert Psych: Behavior is normal, Mood is normal, Patient is cooperative and pleasant Vital Signs: 13:23 BP 148 / 82; Pulse 88; Resp 18 S; Temp 98.2; Pulse Ox 100% on R/A; Weight 81.65 kg; iw Height 5 ft. 5 in. (165.10 cm); Pain 7/10; 13:23 Body Mass Index 29.95 (81.65 kg, 165.10 cm) iw MDM: 13:24 Patient medically screened. [facility] 17:03 Data reviewed: vital signs, nurses notes. [facility] 17:03 Consideration of Admission/Observation Considered admission for observation. I [facility] considered the following discharge prescriptions or medication management in the emergency department Medications were administered in the Emergency Department. See MAR. Counseling: I had a detailed discussion with the patient and/or guardian regarding: the historical points, exam findings, and any diagnostic results supporting the discharge/admit diagnosis, lab results, radiology results, the need for outpatient follow up, to return to the emergency department if symptoms worsen or persist or if there are any questions or concerns that arise at home. ED course: Chest x-ray is clear, troponin is within normal limits on redraw. D-dimer negative. I do not current suspect PE, pneumothorax, ACS, pneumonia. Patient vies follow-up PCP and otherwise given strict return precautions. Patient understood agrees plan of care.. 03/24 13:24 Order name: Basic Metabolic Panel; Complete Time: 14: [facility] 03/24 13:24 Order name: CBC with Diff; Complete Time: 13:59 [facility] 03/24 13:24 Order name: LFT's; Complete Time: 14: [facility] 03/24 13:24 Order name: Magnesium; Complete Time: 14:31 [facility] 03/24 13:24 Order name: NT PRO-BNP; Complete Time: 14: [facility] 03/24 13:24 Order name: PT-INR; Complete Time: 14: [facility] 03/24 13:24 Order name: Troponin HS; Complete Time: 14: [facility] 03/24 13:24 Order name: XRAY Chest (1 view); Complete Time: 15:41 [facility] 03/24 13:24 Order name: D-Dimer; Complete Time: 14: [facility] 03/24 15:18 Order name: Urine Dipstick-Ancillary; Complete Time: 15:41 [facility] 03/24 15:20 Order name: Urine --Ancillary (enter results); Complete Time: 16:04 [facility] 03/24 15:48 Order name: Troponin High Sensitivity; Complete Time: 16:57 [facility] 03/24 13:24 Order name: EKG; Complete Time: 13:25 [facility] 03/24 13:24 Order name: EKG - Nurse/Tech; Complete Time: 15:03 [facility] 03/24 13:24 Order name: IV Saline Lock; Complete Time: 13:55 [facility] 03/24 13:24 Order name: Labs collected and sent; Complete Time: 13:55 [facility] 03/24 13:24 Order name: O2 Per Protocol; Complete Time: 13:38 [facility] 03/24 13:24 Order name: O2 Sat Monitoring; Complete Time: 13:38 [facility] 03/24 14:52 Order name: Urine Test (obtain specimen); Complete Time: 15:18 [facility] 03/24 14:52 Order name: Urine Dipstick-Ancillary (obtain specimen); Complete Time: 15:18 [facility] Administered Medications: 13:55 Drug: Xopenex (levalbuterol) (3) 1.25 mg Route: Inhalation; ap3 15:04 Follow up: Response: No adverse reaction ap3 13:55 Drug: Decadron - Dexamethasone 10 mg Route: IVP; Site: left antecubital; ap3 15:04 Follow up: Response: No adverse reaction ap3 Disposition: 17:28 I reviewed the patient's care provided by the Advanced Practice Provider and agree with jr the diagnosis and treatment plan. Disposition Summary: 03/24/22 17:05 Discharge Ordered [facility]: Home [facility] Condition: Stable [facility] Diagnosis - Chest pain, unspecified [facility]up[facility] - With: Thompson Correa MD - When: 2 - 3 days - Reason: Recheck today's complaints, Continuance of care, Re-evaluation by your physician Discharge Instructions: - Discharge Summary Sheet [facility] - Nonspecific Chest Pain, Adult [facility] Forms: - Medication Reconciliation Form [facility] - Thank You Letter [facility] - Antibiotic Education [facility] - Prescription Opioid Use [facility] Prescriptions: - albuterol sulfate 90 mcg/actuation Inhalation HFA aerosol inhaler - inhale 2 puff by INHALATION route every 6 hours; 1 Pump; Refills: 0, Product [facility] Selection Permitted - Medrol (Espinoza) 4 mg Oral Tablets, Dose Pack - take 1 tablet by ORAL route as directed - follow package instructions; 1 [facility] packet; Refills: 0, Product Selection Permitted - orphenadrine citrate 100 mg Oral Tablet Sustained Release - take 1 tablet by ORAL route 2 times per day As needed; 20 tablet; Refills: 0, [facility] Product Selection Permitted Signatures: Dispatcher [employer] Dane Berger PA PA jmm Williams, Irene, RN RN iw Clara [place] RN RN ap3 Edu Menchaca MD MD [email or web address] Corrections: (The following items were deleted from the chart) 15:03 13:24 Cardiac monitoring ordered. felix ap3
--- NOTE | 2022-03-24 17:05 | ER ---
Nurse's Notes [facility] Name: Linh Young Age: 37 yrs Sex: Female : 1985 Arrival Date: 03/24/2022 Time: 13:14 Bed 12 Private MD: Diagnosis: Chest pain, unspecified Presentation: 03/24 13:22 Chief complaint: Patient states: had COVID on the 8th, was feeling better but now she iw is having chest pains. Coronavirus screen: Client presents with at least one sign or symptom that may indicate coronavirus-19. Ebola Screen: Patient negative for fever greater than or equal to 101.5 degrees Fahrenheit, and additional compatible Ebola Virus Disease symptoms Patient denies exposure to infectious person. Patient denies travel to an Ebola-affected area in the 21 days before illness onset. No symptoms or risks identified at this time. Initial Sepsis Screen: Does the patient meet any 2 criteria? No. Patient's initial sepsis screen is negative. Does the patient have a suspected source of infection? No. Patient's initial sepsis screen is negative. Risk Assessment: Do you want to hurt yourself or someone else? Patient reports no desire to harm self or others. 13:22 Method Of Arrival: Ambulatory iw 13:22 Acuity: MAIA 3 iw 15:20 Onset of symptoms is unknown. ap3 Triage Assessment: 15:19 General: Appears in no apparent distress. Behavior is calm, cooperative. Pain: ap3 Complains of pain in chest. Neuro: Level of Consciousness is awake, alert, obeys commands, Oriented to person, place, time, situation. Cardiovascular: Patient's skin is warm and dry. Respiratory: Reports shortness of breath cough that is Airway is patent Respiratory effort is even, unlabored, Respiratory pattern is regular, symmetrical. 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 - Social history:: Smoking status: Patient reports the use of cigarette tobacco products. Screenin:18 [facility] ED Fall Risk Assessment (Adult) History of falling in the last 3 months, ap3 including since admission No falls in past 3 months (0 pts). Abuse screen: Denies threats or abuse. Nutritional screening: No deficits noted. Tuberculosis screening: No symptoms or risk factors identified. Assessment: 15:21 Pain: Pain does not radiate. Pain began gradually. ap3 15:40 Reassessment: Patient and/or family updated on plan of care and expected duration. Pain ap3 level reassessed. Patient is alert, oriented x 3, equal unlabored respirations, skin warm/dry/pink. Vital Signs: 13:23 BP 148 / 82; Pulse 88; Resp 18 S; Temp 98.2; Pulse Ox 100% on R/A; Weight 81.65 kg; iw Height 5 ft. 5 in. (165.10 cm); Pain 7/10; 13:23 Body Mass Index 29.95 (81.65 kg, 165.10 cm) iw ED Course: 13:14 Patient arrived in ED. as 13:16 Dane Heredia PA is PHCP. jmm 13:16 Edu Menchaca MD is Attending Physician. jmm 13:23 Triage completed. iw 13:24 Arm band placed on. iw 13:37 Clara Colorado, RN is Primary Nurse. ap3 14:47 XRAY Chest (1 view) In Process Unspecified. EDMS 15:19 No provider procedures requiring assistance completed. Patient maintains SpO2 ap3 saturation greater than 95% on room air. 15:20 Patient has correct armband on for positive identification. Pulse ox on. NIBP on. ap3 16:17 Repeat lab(s) drawn. by la, sent to lab. ap3 17:04 Thompson Correa MD is Referral Physician. jmm 17:08 IV discontinued, intact, bleeding controlled, No redness/swelling at site. Pressure ap3 dressing applied. Administered Medications: 13:55 Drug: Xopenex (levalbuterol) (3) 1.25 mg Route: Inhalation; ap3 15:04 Follow up: Response: No adverse reaction ap3 13:55 Drug: Decadron - Dexamethasone 10 mg Route: IVP; Site: left antecubital; ap3 15:04 Follow up: Response: No adverse reaction ap3 Medication: 15:19 VIS not applicable for this client. ap3 Outcome: 17:05 Discharge ordered by MD. [place] 17:08 Discharged to home ambulatory. ap3 17:08 Condition: good 17:17 Discharge instructions given to patient, Instructed on discharge instructions, follow ap3 up and referral plans. medication usage, Demonstrated understanding of instructions, follow-up care, medications, Prescriptions given X 3. 17:17 Patient left the ED. ap3 Signatures: Dispatcher [employer] EDMS Dane Heredia PA PA jmm Martinez, Amelia as Williams, Irene, RN RN iw Prokisch, Amanda, RN RN ap3
[2022-03-24 17:23] VITALS: BP 148/82; TEMP 98.2; O2SAT 100
--- NOTE | 2022-03-25 13:17 | EKG ---
Test Date: 2022-03-24 Test Time: 14:54:27 Manager Marketing Communication: ALP MEASUREMENT RESULTS: Intervals: Rate: 87 NH: 132 QRSD: 88 QT: 380 QTc: 457 Haskell: P: 72 NH: 132 QRS: 64 T: 59 INTERPRETIVE STATEMENTS: Normal sinus rhythm Normal ECG Compared to ECG 08/27/2014 10:16:25 No significant changes Electronically Signed On 03-25-22 13:14:54 TAG MARKER by Thompson Correa
== END 2022-03-24 17:17 | disposition home or self-care (01) ==
LOC: ER 13:12
DX: R07.9 Chest pain, unspecified (principal)
CPT/HCPCS: 36415; 71045; 80048; 80076; 81003; 81025; 83735; 83880; 84484; 85025; 85379; 85610; 93005; 96374; 99285; J1100; J7614

== ENCOUNTER 2022-11-09 18:08 | Emergency (ER) | payer OTHER ==
--- OUTSIDE RECORDS SUMMARY | 2022-11-09 18:12 | XMS REPORT | Continuity of Care Document ---
:1985 Author Organization [facility] t Address [address] [place] [address] Care Team Providers Name Role Phone Misti Haji Primary Care Physician [phone] Misti Haji Attending Clinician [phone] MISTI OSEGUERA Attending Clinician Unavailable Doctor Unassigned, [place] Attending Clinician Unavailable Irish ASKEW, Diane Perez Attending Clinician [phone] SHIVA POLLACK Attending Clinician Unavailable BUBBA RODRIGUEZ Attending Clinician Unavailable Bubba Smith Attending Clinician Aj [facility] Attending Clinician Unavailable [facility] Attending Clinician Unavailable Lauryn Hinojosa Attending Clinician LAURYN MUNOZ Attending Clinician Unavailable Jennifer Arias RN Attending Clinician Unavailable Payers Payer Name Policy Type Policy Number Effective Date Expiration Date S ource Problems Condition Condition Condition Status Onset Resolution Last Treating Co mments Source Name Details Category Date Date Treatment Clinician Date Other Other Disease Active Univers general general 10-19 [place] and advice 00 Me dical for for Branch contracept contracept mari mari management management Breakthrou Breakthrou Disease Active 2021-0 U nivers gh gh 8-23 ity of bleeding bleeding 00:00: [place] on on 00 Medical Nexplanon Nexplanon Bran ch Elevated Elevated Disease Active Unive rs blood blood 4-12 ity of pressure pressure 00:00: [place] reading reading 00 Medical without without Branch diagnosis diagnosis of of hypertensi hypertensi on on Tobacco Tobacco Disease Active Univers use use 9-23 ity of disorder disorder 00:00: [place] [facility] Nexplanon Nexplanon Disease Active Uni vers removal removal 708 ity of 00:00: [place] [address] Medical Branch Need for Need for Disease Active Unive rs Tdap Tdap 7-03 ity of vaccinatio vaccin[place] 00 [place] BMI BMI Disease Active Univers 27.0-27.9, 27.0-27.9, 7 it y of adult adult 00:00: [place] Medical [facility] BMI BMI Disease Active Univers 27.0-27.9, 27.0-27.9, 7 it y of adult adult 00:00: [address] Branch Screening Screening Disease Active Uni vers examinatio examinatio 703 it y of n for STD n for STD 00:00: Jonathan quiñonez (sexually (sexually 00 [facility] kai transmitte transmitte Br anch d disease) d disease) ASCUS with ASCUS with Disease Active U nivers positive positive 8-10 ity of high risk high risk 00:00: Jonathan quiñonez HPV HPV 00 [facility] cervical cervical Branch Dysmenorrh Dysmenorrh Disease Active U nivers ea ea 6-30 ity of 00:00: [place] [facility] Chronic Chronic Disease Active Univers hypertensi hypertensi 6-23 it y of on on 00:00: [place] [address] Medical Branch Depression Depression Disease Active U nivers 6-23 ity of 00:00: [place] [address] Medical Branch Allergies, Adverse Reactions, Alerts This patient has no known allergies or adverse reactions. Social History Social Habit Start Date Stop Date Quantity Comments Source History of tobacco 2003-11-20 Cigarette Smoker University of use 00:00:00 [facility] Branch History [facility] University o f Alcohol Frequency [facility] edical Dorris History [facility] University o f Alcohol Std Drinks [facility] History SDOH University o f Alcohol Binge [place] [facility] Exposure to 2021-07-30 2021-08-09 Not sure University of SARS-CoV-2 (event) 00:00:00 15:19:00 [facility] Alcohol intake 2021-08-09 2021-08-09 Current drinker Unive rsity of 00:00:00 00:00:00 of alcohol [facility] (finding) Branch Cigarettes smoked 2021-06-17 2021-06-17 Univers ity of current (pack per 00:00:00 00:00:00 [facility] ) - Reported Branch Cigarette 2021-06-17 2021-06-17 University of pack-years 00:00:00 00:00:00 [facility] Tobacco use and 2021-06-17 2021-06-17 Smokeless tobacco Un iversity of exposure 00:00:00 00:00:00 non-user [facility] Alcohol Comment 2020-06-08 2020-06-08 on occassion Univers ity of 00:00:00 00:00:00 [facility] Tobacco Comment 2016-08-29 2016-08-29 5 cigarettes per Uni versity of 00:00:00 00:00:00 day. [facility] Sex Ass[birth year] At [birth year] Universit y of 00:00:00 00:00:00 [facility] Smoking Status Start Date Stop Date Source Smokes tobacco daily 2021-06-17 00:00:00 Univers ity of [facility] Medications Ordered Filled Start Stop Current Ordering Indication Dosage Frequency Signature Comments Components Source Medication Medication Date Date Medication? Clinician (SIG) Name Name acyclovir Yes [id number] 400mg Take 1 Univers 400 mg 3-06 tablet by ity of tablet 00:00: mouth in 00 the Medical morning Branch and 1 tablet in the evening. lidocaine 2 Yes [id number] 30mL Apply 15 Univers % mucosal 3-06 Inches to ity o f jelly 00:00: area(s) as [place] 00 needed for Medical Pain Branch (scale 4-6). Apply small amount to area as needed for discomfort etonogestre 2021- No [id number] 68mg Univers L 08-09 ity of (NEXPLANON) 22:30: 21:26 [place] implant 68 00 :00 Medical mg Branch etonogestre 2021- No [id number] 68mg 68 mg, Univers L 08-09 Subdermal, ity of (NEXPLANON) 22:30: 21:26 ONCE NOW, [place] implant 68 00 :00 1 dose, On Med ical mg Mon Branch 08/09/21 at 1730, Routine
Use approved by: PREPRESS OPERATOR etonogestre 2021- No [id number] 68mg Univers L 08-09 ity of (NEXPLANON) 21:45: 21:26 [place] implant 68 00 :06 Medical mg Branch acyclovir Yes [id number] 400mg Take 1 Univers 400 mg 4-28 tablet by ity of tablet 00:00: mouth 2 [place] 00 (two) Medical times Branch daily. lidocaine 2 Yes [id number] 30mL Apply 15 Univers % mucosal 4-28 Inches to ity o f jelly 00:00: area(s) as [place] 00 needed for Medical Pain Branch (scale 4-6). Apply small amount to area as needed for discomfort acyclovir 2022- No [id number] 400mg Take 1 Univers 400 mg 4-28 03-06 tablet by ity of tablet 00:00: 00:00 mouth 2 [place] 00 :00 (two) Medical times Branch daily. lidocaine 2 2022- No [id number] 30mL Apply 15 Univers % mucosal 4-28 03-06 Inches to ity of jelly 00:00: 00:00 area(s) as [place] 00 :00 needed for Medical Pain Branch (scale 4-6). Apply small amount to area as needed for discomfort Immunizations Ordered Filled Immunization Date Status Comments [facility] e Immunization Name Name Influenza Virus 2018-01-12 Completed Universit y of Vaccine Quad IM 3+ 00:00:00 [facility] Influenza Virus 2018-01-12 Completed Universit y of Vaccine Quad IM 3+ 00:00:00 [facility] TDAP 2016-08-29 Completed [facility] 00:00:00 [facility] TDAP 2016-08-29 Completed [facility] 00:00:00 [facility] Vital Signs Vital Name Observation Time Observation Value Comments Source Systolic blood 2021-08-09 20:20:00 121 mm[Hg] Univer sity of pressure [facility] Diastolic blood 2021-08-09 20:20:00 81 mm[Hg] Unive rsity of pressure [facility] Heart rate 2021-08-09 20:20:00 92 /min [facility] Body temperature 2021-08-09 20:19:00 35.94 [facility] Res[facility] rate 2021-08-09 20:19:00 18 /min [facility] Body height 2021-08-09 20:19:00 162.6 cm [facility] Body weight 2021-08-09 20:19:00 77.82 kg [facility] BMI 2021-08-09 20:19:00 29.45 kg/m2 [facility] Procedures Procedure Date / Time Performed Performing Clinician Sour e POCT TEST 2021-08-09 20:21:00 Misti Oseguera [facility] Encounters Start End Encounter Admission Attending Care Care Encounter Source Date/Time Date/Time Type Type Clinicians Facility Department ID 2022-05-02 2022-05-02 Refill Ana Rosa [facility] [id number] Univers 00:00:00 00:00:00 Misti Shepherd PREPRESS OPERATOR [id number] ity of [facility] [id number] [place] as MATERNAL [id number] Med [facility] & CHILD [address] [place] [address] 2021-08-09 2021-08-09 Outpatient R ANA ROSA KSROSSY [facility] [id number] Univers 15:15:00 16:01:23 MISTI maldonado o f [facility] 2021-08-09 2021-08-09 Office Ana Rosa [facility] [id number] Univers 15:15:00 16:01:23 Visit Misti Shepherd PREPRESS OPERATOR [id number] ity [facility] [id number] [place] as MATERNAL [id number] [facility] & CHILD [address] [place] [address] 2021-08-09 2021-08-09 Outpatient R ANA ROSA [facility] [id number] Univers 15:15:00 15:15:00 MISTI ity o f [facility] 2021-08-09 2021-08-09 Orders Doctor DONNA [id number] Univers 00:00:00 00:00:00 Only Unassigned, TANISHA [id number] ity of [place] [facility] [id number] [place] as [id number] [place] [address] Branch 2021-08-02 2021-08-02 Patient Irish E[place]TH [id number] Univers 00:00:00 00:00:00 Secure Msg , Diane PEDIATRIC [id number] ity of [place]2.686 [place] [phone] [address] 2021-06-22 2021-06-22 Telephone [facility] [id number] Univers 00:00:00 00:00:00 Misti C PREPRESS OPERATOR [id number] ity of [facility] [id number] [place] as MATERNAL [id number] Med ical & CHILD [address] [place] [address] 2021-06-21 2021-06-21 Telephone [facility] [id number] Univers 00:00:00 00:00:00 Misti C PREPRESS OPERATOR [id number] ity of REGIONAL [id number] [place] MATERNAL [id number] Med ical & CHILD [address] [place] [address] 2021-06-21 2021-06-21 Telephone [facility] [id number] Univers 00:00:00 00:00:00 Misti C PREPRESS OPERATOR [id number] ity of REGIONAL [id number] [place] MATERNAL [phone] [facility] ical & CHILD [address] [place] [address] 2021-06-17 2021-06-17 Office [facility] [id number] Univers 15:15:00 16:39:53 Visit Misti Shepherd PREPRESS OPERATOR [id number] ity of [facility] [id number] [place] as MATERNAL [phone] [facility] & [facility]ILD [address] [place] [address] 2021-06-17 2021-06-17 Outpatient R ANA ROSA, [facility] [id number] Univers 15:15:00 16:39:53 MISTI ity o [facility] 2021-06-17 2021-06-17 Outpatient R ANA ROSA, [facility] [id number] Univers 15:15:00 16:39:53 MISTI ity o [facility] 2021-06-17 2021-06-17 Outpatient R ANA ROSA, [facility] [id number] Univers 15:15:00 15:15:00 MISTI ity o [facility] 2021-06-17 2021-06-17 Orders Doctor THOMPSON [id number] Univers 00:00:00 00:00:00 Only Unassigned, TANISHA [id number] ity of [place] [facility] 4.2.7.2.686 Glenn as [phone] [address] 2021-06-10 2021-06-10 [facility] [id number] Univers 13:00:00 13:00:00 SHIVA maldonado [facility] 2021-05-27 2021-05-27 Outpatient R MICHAEL [facility] [id number] Univers 14:30:00 15:08:09 VIKYANDRESSARocio manishy o [facility] 2021-05-27 2021-05-27 [facility] [id number] Univers 14:30:00 15:08:09 Visit Bubba Pereyra PREPRESS OPERATOR [id number] ity of [facility] 4.2.7.2.686 [place] MATERNAL [id number] [facility] & CHILD [address] [place] [address] 2020-12-08 2020-12-08 Refill Ana Rosa [facility] [id number] Univers 00:00:00 00:00:00 Misti C PREPRESS OPERATOR [id number] ity of REGIONAL 4.2.7.2.686 [place] MATERNAL [id number] [facility] & CHILD [address] [place] [address] 2020-11-30 2020-11-30 Outpatient R ANA ROSA [facility] [id number] Univers 14:15:00 14:15:00 MISTI ity o [facility] 2020-11-30 2020-11-30 Telephone [facility] [id number] [facility] 00:00:00 00:00:00 Misti C PREPRESS OPERATOR [id number] ity of [facility] [id number] [place] MATERNAL [id number] [address] 2020-10-19 2020-10-19 Office [facility] [id number] Univers 14:14:48 15:30:25 Visit Misti Shepherd PREPRESS OPERATOR [id number] ity of [facility] [id number] [place] MATERNAL [id number] [address] 2020-10-19 2020-10-19 [facility] [id number] Univers 14:15:00 14:15:00 MISTI ity o [facility] 2020-07-20 2020-07-20 Outpatient R ANA ROSA [facility] [id number] Univers 09:15:00 09:15:00 MISTI ity o [facility] 2020-07-16 2020-07-16 Telephone Tosin Rocha [id number] Univers 00:00:00 00:00:00 Sera Santos [id number] ity of [place].2.[place] [id number] [address] 2020-06-08 2020-06-08 [facility] [id number] Univers 10:52:52 11:51:26 Visit Bubba Pereyra PREPRESS OPERATOR [id number] ity of [facility] 4.2.7.2.686 [place] MATERNAL [id number] Med ical & CHILD [address] [facility] 2020-06-08 2020-06-08 Outpatient [facility] [id number] Univers 10:30:00 10:30:00 BUBBA ity o f [facility] 2020-06-08 2020-06-08 Orders Doctor DONNA [id number] [id number] Univers 00:00:00 00:00:00 Only Unassigned, TANISHA [id number] ity of [place] [facility] 4.2.7.2.686 [place] as [id number] [address] 2020-04-20 2020-04-20 [facility] [id number] Univers 14:15:00 14:15:00 MISTI hammondy o f [facility] 2019-05-29 2019-05-29 Telephone Irish [facility] [id number] Univers 00:00:00 00:00:00 , Diane Shuttlerock [id number] ity of [place] 4.2.7.2.686 [place] as Professio [id number] [address] Office [facility] 2019-05-28 2019-05-28 Urgent Pob1, Acute Care Clinic [facility] 1. [id number] Univers 10:25:08 10:45:08 Lauryn Cartwright [facility] [id number] ity of [place] 4.2.7.2.686 [place] as Professio [id number] [address] Office [facility] 2019-05-28 2019-05-28 Outpatient [facility] [id number] Univers 10:20:00 10:20:00 LAURYN ity [facility] 2019-05-28 2019-05-28 DONNA Pena [id number] Univers 00:00:00 00:00:00 Triage Jennifer GARAY [id number] it y of [facility] 4.2.7.2.686 [place] as [id number] [address] Results Test Description Test Time Test Comments Results Result Comments Source POCT TEST 2021-08-09 20:22:00 Test Item Value Reference Range Interpretation Comme nts POCT PREG (test code = 1605) Negative On board controls acceptable with C Line (test code = 3574) Yes POCT PREG LOT # (test code = 3575) POCT PREG TEST DATE (test code = 3576) [facility]
[2022-11-09] MEDS ORDERED: KETOROLAC 30 MG/ML INJ ONE (18:58)
[2022-11-09 19:00] LABS: Specific Gravity > 1.030 (1.005-1.030)
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
[2022-11-09 22:36] VITALS: TEMP 98.1
[2022-11-09 22:38] VITALS: BP 129/68; O2SAT 100
== END 2022-11-09 21:23 | disposition home or self-care (01) ==
LOC: ER 18:08
DX: M54.2 Cervicalgia (principal); M54.9 Dorsalgia, unspecified; M79.662 Pain in left lower leg; V43.53XA Car driver injured in collision with pick-up truck in traffic accident, initial encounter
CPT/HCPCS: 70450; 71250; 72125; 81025; 96372; 99284

== ENCOUNTER 2024-02-16 17:52 | Emergency (ER) | payer MEDICARE ==
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
[2024-02-16 18:51] LABS: PT Prothrombin Time 11.4 SECONDS (9.4-12.5); Protime INR 1.02
[2024-02-16 18:53] LABS: Absolute Eosinophils 0.1 K/uL (0-0.5); Absolute Lymphocytes (CBC) 2.9 K/uL (0.7-4.9); Absolute Monocytes 0.5 K/uL (0.1-1.3); Absolute Neutrophil 3.5 K/uL (1.8-8.0); Basophils % 0.3 % (0-1.3); Eosinophils % 1.4 % (0-4.4); Hematocrit 40.5 % (36.0-45.0); Hemoglobin 13.7 g/dL (12.0-15.0); Lymphocytes % 41.5 % (15.3-44.8); MCH 33.5 pg (27.0-35.0); MCHC 33.9 g/dL (32.0-36.0); MCV 98.9 fL (80-100); MPV 9.9 fL (7.6-11.3); Monocytes % 7.2 % (3.3-12.3); Neutrophils % 49.6 % (41.7-73.7); Nucleated Red Blood Cells % 0.1 % (0-0); Platelets 120 thou/uL (152-406); Red Cell Distribution Width 14.8 % (12.1-15.2)
[2024-02-16 19:07] LABS: ALT/SGPT 19 U/L (13-56); AST/SGOT 12 U/L (15-37); Albumin 3.6 g/dL (3.4-5.0); Albumin/Globulin Ratio 1.2 (1.1-1.8); Alkaline Phosphatase 43 U/L (45-117); Anion Gap 6.3 mEq/L (5.0-15.0); BUN Blood Urea Nitrogen 10 mg/dL (7-18); Bicarbonate 28 mEq/L (21-32); Bilirubin Direct < 0.2 mg/dL (0-0.2); Bilirubin Total 0.2 mg/dL (0.2-1.0); Glomerular Filtration Rate 113 ml/min (=/>90); Glucose Level 119 mg/dL (74-106); Potassium 3.3 mEq/L (3.5-5.1); Protein, Total 6.6 g/dL (6.4-8.2); Sodium Level 134 mEq/L (136-145)
[2024-02-16 20:22] VITALS: BP 131/91; TEMP 98; O2SAT 98
== END 2024-02-16 19:38 | disposition left against medical advice (07) ==
LOC: ER 17:52
DX: R41.82 Altered mental status, unspecified (principal); V89.2XXA Person injured in unspecified motor-vehicle accident, traffic, initial encounter; Y93.89 Activity, other specified; Y92.410 Unspecified street and highway as the place of occurrence of the external cause
CPT/HCPCS: 36415; 80048; 80076; 80143; 80179; 82077; 85025; 85610; 99282